=== PATIENT | male | born 1985 | race Two or more races ===

== ENCOUNTER 2017-02-09 08:22 | Emergency (ER) | payer SELFPAY ==
[~2017-02-09] VITALS: Ht 170.2 cm; Wt 74.8 kg
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
--- NOTE | 2017-02-09 08:55 | NUR ---
PT TAKEN TO CT.
[2017-02-09 11:21] VITALS: BP 134/71
--- NOTE | 2017-02-09 11:25 | NUR ---
IV removed. Catheter intact and site benign. Pressure and 4x4 applied to site. No bleeding noted.
--- NOTE | 2017-02-09 11:27 | NUR ---
Patient discharged to home in stable condition. Written and verbal after care instructions given. Patient verbalizes understanding of instruction.
== END 2017-02-09 11:31 | disposition home or self-care (01) ==
LOC: ER 08:24
DX: S16.1XXA Strain of muscle, fascia and tendon at neck level, initial encounter (principal); M25.572 Pain in left ankle and joints of left foot; M25.512 Pain in left shoulder; R51 Headache; M25.522 Pain in left elbow; V43.52XA Car driver injured in collision with other type car in traffic accident, initial encounter; Y93.89 Activity, other specified; Y92.89 Other specified places as the place of occurrence of the external cause; Y99.9 Unspecified external cause status
CPT/HCPCS: 70450-TC; 72125-TC; 73030-TC; 73080-TC; 73610-TC; 73630-TC; A4606; J2270; J2405; Z7610